=== PATIENT | male | born 1960 | race Caucasian/White ===

== ENCOUNTER 2024-09-08 18:02 | Emergency (ER) | payer OTHER, SELFPAY ==
[2024-09-08 18:12] VITALS: BP 166/100; PULSE 92; RESP 17; TEMP 36.6; O2SAT 97; BMI 39.7
--- NOTE | 2024-09-08 18:49 | CTR_ITS ---
PROCEDURE INFORMATION: Exam: CT Abdomen And Pelvis With Contrast Exam date and time: 09/08/2024 7:44 PM Age: 64 years old Clinical indication: Abdominal pain; Generalized; Additional info: Llq pain/diarrhea TECHNIQUE: Imaging protocol: Computed tomography of the abdomen and pelvis with contrast. Radiation optimization: All CT scans at this facility use at least one of these dose optimization techniques: automated exposure control; mA and/or kV adjustment per patient size (includes targeted exams where dose is matched to clinical indication); or iterative reconstruction. Contrast material: OMNIPAQUE 350; Contrast volume: 100 ml; Contrast route: INTRAVENOUS (IV); COMPARISON: No relevant prior studies available. RADIATION DOSE METRICS: Total DLP (mGy-cm): 1293.06 FINDINGS: Liver: Normal. No mass. Gallbladder and biliary ducts: Normal. No calcified stones. No ductal dilation. Pancreas: Normal. No ductal dilation. Spleen: The spleen is enlarged measuring 14.5 cm in length Adrenal glands: Increased left adrenal nodularity. The right adrenal gland is unremarkable. Kidneys and ureters: There is moderate left hydronephrosis. There is moderate left perinephric stranding. These findings are likely related to a left UPJ obstruction. The right kidney is unremarkable. Stomach and bowel: Scattered colon diverticula. No inflammatory change identified involving the GI tract. No signs of bowel obstruction. Mild fecal stasis. Appendix: No evidence of appendicitis. Intraperitoneal space: Unremarkable. No free air. No significant fluid collection. Vasculature: Scattered calcific plaque involves the abdominal aorta and its major branches. The abdominal aorta is free of aneurysm and dissection. Lymph nodes: Unremarkable. No enlarged lymph nodes. Urinary bladder: The urinary bladder is partially decompressed with wall thickening. Reproductive: Unremarkable as visualized. Bones/joints: Multilevel degenerative changes involve the spine. Soft tissues: Small periumbilical hernia containing fat only. CT/CT abdomen pelvis w con* [id number] IMPRESSION: 1. Left-sided obstructive uropathy secondary to a left UPJ obstruction. This finding may be congenital or acquired. 2. Mild diffuse urinary bladder wall thickening. Clinical correlation for cystitis recommended. 3. Diverticulosis. 4. Mild splenomegaly.
[2024-09-08] MEDS: ketorolac 30 mg/mL INJ IVP (19:07)
[2024-09-08] MEDS: ondansetron 2 mg/ML SDV 2 mL 8 MG IVP (19:07)
--- NOTE | 2024-09-08 19:08 | W.ED.ABDPA2 ---
HPI - Abdominal Pain General: Chief Complaint: Abdominal Pain Stated Complaint: Left Side ABD Time Seen by Provider: 09/08/24 18:22 Source: patient Mode of arrival: ambulatory Limitations: no limitations History of Present Illness: Patient is a 64-year-old male who presents the emergency department complaining of left lower quadrant abdominal pain beginning yesterday. States that yesterday onset was gradual and pain is mild, also having some pain into the left back. States that today it got much worse, and states that on the drive over here may have to stop due to him doubling over in pain. Also notes feeling nauseous, however has not vomited. Does note some diarrhea. Reports a history of kidney stones in the past, and states that the intensity of the pain is similar, though it is seemingly calm down at this time. He is also noting loose stools, however no blood in the stools. Reports a history of colitis, states his colonoscopies are up-to-date and have been normal. He does note that he ate walnuts and sunflower seeds prior to onset of pain, though denies any history of diverticulosis or diverticulitis. Has not taken any medications for the pain. No hematuria, dysuria, hesitancy with urination, fevers, chest pain, shortness of breath, or other symptoms reported at this time. Vitals are within normal limits. MD elicited complaint: abdominal pain Onset (ago): day(s) Pain Consistency: constant Location: LLQ Severity: moderate Quality: stabbing Exacerbating factors: nothing Relieving factors: nothing Associated Symptoms: Reports change in stool character, chills and nausea; Denies bloating, constipation, dysuria, fever(s), hematochezia, hematemesis and vomiting Related Data Home Medications ?Medication ?Instructions ?Recorded ?Confirmed allopurinol 100 mg tablet 100 mg PO DAILY 07/19/20 03/15/22 meloxicam 7.5 mg tablet 7.5 mg PO DAILY 07/19/20 03/15/22 lisinopril 20 mg tablet 20 mg PO DAILY 03/20/21 03/15/22 propranolol 60 mg capsule,24 60 mg PO DAILY 02/24/22 03/15/22 hr,extended release Previous Rx's ?Medication ?Instructions ?Recorded amoxicillin 875 mg-potassium 1 tab PO BID #20 tabs 02/24/22 clavulanate 125 mg tablet prednisone 10 mg tablet 30 mg (3 x 10 mg) PO DAILY 5 days 02/24/22 #15 tabs cefdinir 300 mg capsule 300 mg PO BID 7 days #14 caps 03/15/22 ciprofloxacin 0.3 %-dexamethasone 4 drp otic (ear) BID 7 days #7.5 mL 03/15/22 0.1 % ear drops,suspension (Ciprodex) cephalexin 500 mg capsule 500 mg PO BID 7 days #14 caps 09/08/24 hydrocodone 5 mg-acetaminophen 325 1 tab PO Q8H PRN pain #14 tabs 09/08/24 mg tablet ondansetron 4 mg disintegrating 4 mg PO TID PRN nausea and 09/08/24 tablet vomiting #30 tabs tamsulosin 0.4 mg capsule (Flomax) 0.4 mg PO DAILY #30 caps 09/08/24 Allergies Allergy/AdvReac Type Severity Reaction Status Date / Time No Known Allergies Allergy Verified 02/24/22 16:48 Review of Systems General: Reports: 10 or more systems reviewed and unremarkable except in HPI and below Const: Reports: chills; Denies: fever(s), change in appetite, change in weight or diaphoresis ENMT: Denies: throat pain or hoarseness Card: Denies: chest pain, palpitations or lightheadedness Resp: Denies: dyspnea, productive cough or wheezing GI: Reports: abdominal pain, nausea and change in stool character; Denies: vomiting, hematemesis, constipation, bloating or hematochezia : Denies: flank pain, difficulty urinating, dysuria, urinary frequency or urinary urgency Musc: Reports: back pain; Denies: neck pain Skin/Breast: Denies: rash or new lesions Neuro: Denies: headache(s) or dizziness PFSH ED PFSH: Medical History (Updated 09/08/24 @ 21:05 by NIKKIE Griffith) Raynaud's phenomenon (by history or observed) Gout OA (osteoarthritis) of knee Essential hypertension Social History Smoking and tobacco/nicotine status: never used tobacco/nicotine Second hand smoke exposure: No Alcohol intake: never Substance/Drug Use: never Do you think of yourself as: Straight/Heterosexual Current gender identity: Male Physical Exam Const: COMMON NORMALS: no acute distress, average body habitus, patient oriented x3, no limitations, healthy appearing, alert and well nourished GENERAL APPEARANCE: cooperative and comfortable ORIENTATION/CONSCIOUSNESS: Yes awake HENMT: COMMON NORMALS: normocephalic, atraumatic, hearing grossly normal bilaterally, external ears normal, Normal external nose present, Normal nasal mucous membranes and turbinates present and moist oral mucous membranes HEAD & SCALP: normocephalic and atraumatic NOSE: Normal external nose present and Normal nasal mucous membranes and turbinates present EXTERNAL EAR: Yes external ears normal Eye: COMMON NORMALS: Equal, round and reactive pupils present, EOMs intact bilaterally, conjunctivae normal and normal visual garza by confrontation CONJUNCTIVA: Yes conjunctivae normal PUPIL: Yes Equal, round and reactive pupils present Neck/C-Spine: COMMON NORMALS: full ROM, supple, no meningeal signs and no JVD Resp: COMMON NORMALS: normal respiratory effort, No retractions, No use of accessory muscles and clear to auscultation bilaterally AUSCULTATION: clear to auscultation bilaterally, no crackles, no rales, no rhonchi and no wheezes Cardio: COMMON NORMALS: no JVD, regular rate, regular rhythm, S1 normal heart sound present, S2 normal heart sound present, No gallops present (Cardio), No clicks present (Cardio), No murmurs present (Cardio), No rub (Cardio) and Peripheral pulses 2+ throughout RATE: regular rate RHYTHM: regular rhythm HEART SOUNDS: S1 normal heart sound present and S2 normal heart sound present PERIPHERAL PULSES: Peripheral pulses 2+ throughout GI: COMMON NORMALS: Soft to palpation, No hepatosplenomegaly present and no masses INSPECTION: Yes central obesity AUSCULTATION: Yes normoactive bowel sounds PALPATION: Yes Soft to palpation, Yes Tenderness to palpation present (GI) Details: LLQ, No Guarding due to palpation present (GI), No Rigid due to palpation and Yes No hepatosplenomegaly present RECTAL EXAM: Yes deferred : COMMON NORMALS: Yes no CVA tenderness BLADDER/KIDNEY EXAM: Yes no CVA tenderness Back/Pelvis: COMMON NORMALS: no CVA tenderness Extremity: COMMON NORMALS: normal to inspection and full ROM Neuro: COMMON NORMALS: patient oriented x3, moves all extremities, no focal motor deficits and no sensory deficits noted SENSORIUM/ORIENTATION: Yes alert MENINGEAL SIGNS: Yes no meningeal signs Psych: COMMON NORMALS: mental status grossly normal, cooperative and speech normal SPEECH: Yes normal speech Skin: COMMON NORMALS: no rashes or lesions noted GENERAL SKIN EXAM: no rashes or lesions noted Course Vital Signs: Vital signs: Vital Signs Temperature 97.9 F 09/08/24 18:12 Pulse Rate 89 09/08/24 21:43 Respiratory Rate 17 09/08/24 18:12 Blood Pressure 118/68 09/08/24 21:43 Pulse Oximetry 95 09/08/24 21:43 Oxygen Delivery Me thod Room Air 09/08/24 21:43 MDM - Abdominal Pain Medical Decision Making Patient presented with left lower quadrant abdominal pain. Reported history of kidney stones, stating this felt similar in intensity. Hypertensive on arrival, likely secondary to pain as after being administered Toradol through IV, noted cessation of pain and blood pressure dropped accordingly. Vitals have remained stable. On exam, no significant reproducible tenderness to palpation, mild to left lower quadrant however rest of the exam unremarkable. All of his lab work appeared normal/unremarkable, specifically his urinalysis did not have any signs of an infection. On CT there was signs of obstructive uropathy at the left renal pelvis into the ureter, questionable onset though I feel this is likely acquired due to acute onset of pain. Patient does not see a urologist, does note he has had on and off pain at the left CVA region for some time, just had never had worsening pain to the left lower quadrant like he did today. I suspect that this pain is related, will treat with prophylactic antibiotics, Flomax, and pain control and have him see urology in an outpatient basis. There is no infection on his urine and thus no need for acute consult with urology. The rest of his CT was unremarkable. He is symptom-free at this time, stable for discharge home and I told him to return if he notices any fever, worsening vomiting, or other major symptoms. Patient and spouse in the room agree with this plan and verbalized understanding to return precautions. Discussed case with Dr. Patino. Lab Data 09/08/24 19:07 09/08/24 19:07 Labs/Radiology: Radiology Impressions Abdomen/Pelvis CT 09/08/24 18:49 IMPRESSION: 1. Left-sided obstructive uropathy secondary to a left UPJ obstruction. This finding may be congenital or acquired. 2. Mild diffuse urinary bladder wall thickening. Clinical correlation for cystitis recommended. 3. Diverticulosis. 4. Mild splenomegaly. Laboratory Results WBC 11.83 10^3/uL (3.29-11.43) H 09/08/24 19:07 RBC 5.50 10^6/uL (3.85-5.65) 09/08/24 19:07 Hgb 15.50 g/dL (11.27-16.99) 09/08/24 19:07 Hct 47.1 % (37-53) 09/08/24 19:07 MCV 85.6 fl (82-101) 09/08/24 19:07 MCH 28.2 pg (27-33) 09/08/24 19:07 MCHC 32.9 g/dL (30-55) 09/08/24 19:07 RDW 13.2 % (12.1-15.1) 09/08/24 19:07 Plt Count 236 10^3/cmm (157-399) 09/08/24 19:07 MPV 9.3 fL (7.4-10.4) 09/08/24 19:07 Neut % (Auto) 88.0 % 09/08/24 19:07 Lymph % (Auto) 7.4 % 09/08/24 19:07 [place] % (Auto) 3.6 % 09/08/24 19:07 Eos % (Auto) 0.3 % 09/08/24 19:07 Baso % (Auto) 0.4 % 09/08/24 19:07 Neut # (Auto) 10.40 10^3/uL (1.8-7.7) H 09/08/24 19:07 Lymph # (Auto) 0.9 10^3/uL (0.8-4.8) 09/08/24 19:07 [place] # (Auto) 0.4 10^3/uL (0.2-0.9) 09/08/24 19:07 Eos # (Auto) 0.0 10^3/uL (0.0-0.8) 09/08/24 19:07 Baso # (Auto) 0.1 10^3/uL (0.0-0.1) 09/08/24 19:07 Nucleated RBC % (auto) 0 % 09/08/24 19:07 Nucleated RBCs # 0.0 /100WBC 09/08/24 19:07 Sodium 137 mmol/L (136-145) 09/08/24 19:07 Potassium 4.5 mmol/L (3.5-5.1) 09/08/24 19:07 Chloride 96 mmol/L (98-107) L 09/08/24 19:07 Carbon Dioxide 25 mmol/L (22-29) 09/08/24 19:07 Anion Gap 20.5 (5-19) H 09/08/24 19:07 BUN 24 mg/dL (8-23) H 09/08/24 19:07 Creatinine 1.1 mg/dL (0.7-1.2) 09/08/24 19:07 GFR Calculation 67.0 mL/min (90-130) L 09/08/24 19:07 Glucose 165 mg/dL (65-115) H 09/08/24 19:07 Calculated Osmolality 292 mOsm/kg (285-295) 09/08/24 19:07 Calcium 9.6 mg/dL (8.5-10.5) 09/08/24 19:07 Total Bilirubin 0.6 mg/dL (0.15-1.2) 09/08/24 19:07 AST 32 U/L (0-40) 09/08/24 19:07 ALT 28 U/L (0-41) 09/08/24 19:07 Alkaline Phosphatase 108 U/L (40-130) 09/08/24 19:07 Total Protein 7.3 g/dL (6.6-8.7) 09/08/24 19:07 Albumin 4.4 g/dL (3.5-5.2) 09/08/24 19:07 Globulin 2.9 g/dL (1.3-4.6) 09/08/24 19:07 Lipase 84 U/L (13-60) H 09/08/24 19:07 Urine Color Yellow (Yellow) 09/08/24 19:18 Urine Appearance Turbid (CLEAR) A 09/08/24 19:18 Urine pH >=9.0 (5-7) A 09/08/24 19:18 Ur Specific [place] 1.017 (1.005-1.030) 09/08/24 19:18 Urine Protein 1+ (Negative) A 09/08/24 19:18 Urine Glucose (UA) Negative (Normal) 09/08/24 19:18 Urine Ketones Negative (Negative) 09/08/24 19:18 Urine Blood Negative (Negative) 09/08/24 19:18 Urine Nitrate Negative (Negative) 09/08/24 19:18 Urine Bilirubin Negative (Negative) 09/08/24 19:18 Urine Urobilinogen 0.2 mg/dL (Negative) 09/08/24 19:18 Ur Leukocyte Esterase Negative (Negative) 09/08/24 19:18 Urine RBC 6-10 /hpf (0-2) 09/08/24 19:18 Urine WBC 0-5 /hpf (0-5) 09/08/24 19:18 Ur Squamous Epith Cells 0-5 /hpf (0-5) 09/08/24 19:18 Amorphous Sediment Not Reportable 09/08/24 19:18 Urine Bacteria None seen /hpf (NONE) 09/08/24 19:18 Hyaline Casts 0-4 /lpf H 09/08/24 19:18 All radiology interpretation(s) finalized by discharge Discharge Plan Discharge Patient Disposition: Home Clinical Impression: Left nephrolithiasis Condition: Stable Prescriptions: New tamsulosin [Flomax] 0.4 mg capsule 0.4 mg PO DAILY Qty: 30 0RF cephalexin 500 mg capsule 500 mg PO BID 7 Days Qty: 14 0RF ondansetron 4 mg tablet,disintegrating 4 mg PO TID PRN (Reason: nausea and vomiting) Qty: 30 0RF hydrocodone-acetaminophen 5-325 mg tablet 1 tab PO Q8H PRN (Reason: pain) Qty: 14 0RF No Action allopurinol 100 mg tablet 100 mg PO DAILY meloxicam 7.5 mg tablet 7.5 mg PO DAILY lisinopril 20 mg tablet 20 mg PO DAILY propranolol 60 mg capsule,extended release 24 hr 60 mg PO DAILY amoxicillin-pot clavulanate 875-125 mg tablet 1 tab PO BID Qty: 20 0RF prednisone 10 mg tablet 30 mg PO DAILY 5 Days Qty: 15 0RF ciprofloxacin-dexamethasone [Ciprodex] 0.3-0.1 % drops,suspension 4 drp otic (ear) BID 7 Days Qty: 7.5 0RF cefdinir 300 mg capsule 300 mg PO BID 7 Days Qty: 14 0RF Discharge Orders: Discharge ED (Routine); Ordered 09/08/24 Ordered By: Bharat Quinones Referrals: Jack Spear DO [Primary Care Provider] - Patient Instructions: Kidney Stones (ED) Activity Restrictions/Additional Instructions: Call for appointment with urology. If fever (temp >100.4) develops return to the emergency room immediately, as this is an emergency. Take nausea medication prior to taking pain medications. Take antibiotics as prescribed. Make sure that you are drinking plenty of fluids. Take ibuprofen for pain, hydrocodone for breakthrough pain. Flomax as prescribed. Thank you for choosing [facility] for your healthcare needs today. You have been screened and evaluated and felt safe for discharge. Health conditions do change or evolve sometimes and as such it is important that you follow up with your Primary Doctor to be re checked, 3-5 days is a general good time frame for follow up. You are always welcome to return to the ED for re assessment if your symptoms are worsening or you have new concerns Print Language: Turkish Coding Level of Care Code ED Wrecking Mechanic for Edna Sanchez
[2024-09-08 19:17] LABS: Basophils # 0.1 10^3/uL (0.0-0.1); Basophils % 0.4 %; Eosinophils % 0.3 %; Hematocrit 47.1 % (37-53); Lymphocytes # 0.9 10^3/uL (0.8-4.8); Lymphocytes % 7.4 %; Mean Corpuscular HGB Conc 32.9 g/dL (30-55); Mean Corpuscular Hemoglobin 28.2 pg (27-33); Mean Corpuscular Volume 85.6 fl (82-101); Mean Platelet Volume 9.3 fL (7.4-10.4); Monocytes # 0.4 10^3/uL (0.2-0.9); Monocytes % 3.6 %; Nucleated Red Blood Cells % 0 %; Platelet Count 236 10^3/cmm (157-399); Red Cell Distribution Width 13.2 % (12.1-15.1); White Blood Count 11.83 10^3/uL (3.29-11.43)
[2024-09-08 19:30] LABS: Alanine Aminotransferase 28 U/L (0-41); Albumin Level 4.4 g/dL (3.5-5.2); Alkaline Phosphatase 108 U/L (40-130); Anion Gap 20.5 (5-19); Aspartate Amino Transferase 32 U/L (0-40); Blood Urea Nitrogen 24 mg/dL (8-23); Calcium 9.6 mg/dL (8.5-10.5); Carbon Dioxide 25 mmol/L (22-29); Chloride 96 mmol/L (98-107); Creatinine Clr Calc Pharmacy 90.5282; Globulin 2.9 g/dL (1.3-4.6); Glucose 165 mg/dL (65-115); Lipase 84 U/L (13-60); Osmolality Calculated 292 mOsm/kg (285-295); Potassium 4.5 mmol/L (3.5-5.1); Sodium 137 mmol/L (136-145); Total Bilirubin 0.6 mg/dL (0.15-1.2); Total Protein 7.3 g/dL (6.6-8.7)
[2024-09-08 19:32] VITALS: BP 147/82; PULSE 90; O2SAT 92
[2024-09-08 19:41] LABS: Bilirubin Urine Negative (Negative); Blood Urine Negative (Negative); Glucose Urine UA Negative (Normal); Ketones Urine Negative (Negative); Leukocyte Esterase Urine Negative (Negative); Nitrate Urine Negative (Negative); Protein Urine 1+ (Negative); Specific Gravity, Urine 1.017 (1.005-1.030); Urine Appearance Turbid (CLEAR); Urine Color Yellow (Yellow); Urobilinogen Urine 0.2 mg/dL (Negative); pH Urine >=9.0 (5-7)
[2024-09-08 19:47] LABS: Add Urine Microscopic? YES; Bacteria Urine None Seen /hpf; Hyaline Casts Urine 0-4 /lpf; Squamous Epithelial Cell Urine 0-5 /hpf (0-5); WBC Urine 0-5 /hpf (0-5)
[2024-09-08] MEDS: iohexol 350 mg/mL 500 mL Btl (per mL) IV (19:49)
[2024-09-08 21:43] VITALS: BP 118/68; PULSE 89; O2SAT 95
[2024-09-08] MEDS: cefTRIAXone 1,000 mg SDV 1000 MG IVP (21:43)
[2024-09-08] MEDS: tamsulosin 0.4 mg Capsule PO (21:43)
--- NOTE | 2024-09-09 09:00 | DCPLANNER ---
Referral sent to [facility]
== END 2024-09-08 22:08 | disposition home or self-care (01) ==
PROVIDERS: Emergency Provider Physician Assistant; PCP Family Medicine
DX: N20.0 Calculus of kidney (principal); I10 Essential (primary) hypertension
CPT/HCPCS: 74177; 80053; 81001; 83690; 85025; 96374; 96375; 99285; J0696; J1885; J2405; J9999